=== PATIENT | female | born 1985 | race Caucasian/White ===

== ENCOUNTER 2019-06-12 21:23 | Emergency (ER) | payer OTHER ==
[~2019-06-12] VITALS: Ht 175.3 cm; Wt 80.7 kg
[~2019-06-12 21:23] MED LIST: ACIDO FOLICO 1MG; PANADOL MAXIMU500 MG PO; PRENATAL PLUS
== END 2019-06-13 01:16 | disposition home or self-care (01) ==
LOC: ER 21:23
DX: M94.0 Chondrocostal junction syndrome [Tietze] (principal)